=== PATIENT | male | born 1950 | race Caucasian/White ===

== ENCOUNTER 2024-01-07 06:29 | Emergency (ER) | payer MEDICARE, OTHER, SELFPAY ==
[2024-01-07 06:31] VITALS: BP 132/86
[2024-01-07 06:40] VITALS: BMI 27.7
--- NOTE | 2024-01-07 07:37 | ED.GENMED ---
History of Present Illness
General
Chief Complaint: DVT/Possible Blood Clot
Source: patient
Exam Limitations: none
Time Seen by Provider: 01/07/24 07:06
Nursing documentation reviewed up to this point in time: agreed with
History of Present Illness
History of Present Illness:
Patient is a 73-year-old male presents to the ER for evaluation of left calf pain. He reports he woke up at 1:15 AM by stabbing pain in his left calf. He reports he had a DVT years ago in [place] and this feels similar. He denies any shortness
of breath. Denies any recent injury. Denies any obvious swelling. Denies any redness fever chills.
Past History
Past History
ED Past Medical History: None, Other (Irritable bowel ) and Other (Diverticulitis)
ED Past Surgical History: None and Orthopedic
Social History
Tobacco: Non-smoker
Alcohol: Daily
Drug: None
Personal:
Living: with family
Employment: Employed
Review of Systems
Review of Systems
Allergies reviewed?: Yes
All Other Systems: ROS reviewed and negative except as documented in HPI and ROS
Constitutional: Reports no symptoms; Denies fever
Musculoskeletal: Reports other (left calf pain )
Skin: Reports no symptoms
Neurological: Reports no symptoms
Psychiatric: Reports no symptoms
Phy Exam
General Physical Exam
General Presentation: no apparent distress
General age: appears stated age
General Skin: warm and dry
General Habitus: normal
General Mental: alert
General Hydration: appears well hydrated
Neurological Exam
Neurological Exam: alert and oriented x3
Musculoskeletal Exam
Musculoskeletal Exam: full ROM and other (lle w/ strong pulses no erythema no swelling + tenderness to posterior calf )
Skin Exam
Skin Exam: normal color and warm/dry
Psychiatric Exam
Psychiatric Exam: normal mood/affect
Course
Orders/Labs/Results
Orders:
Orders
01/07/24 07:10
Venous Doppler Lwr Ext Left [US Periph Venous LOWER Ext LT] Urgent
Comment:
Reason For Exam: pain
01/07/24 08:03
Complete Blood Count/With Diff Urgent
Comprehensive Metabolic Panel Urgent
01/07/24 08:15
Acetaminophen [Tylenol] 650 mg PO NOW STA
Abnormal Lab Results
01/07/24
08:03
WBC 4.6 L 10^3/uL
(4.8-10.8)
Hgb 12.0 L g/dL
(13.0-18.0)
Hct 36.2 L %
(39.0-52.0)
MCV 62.4 L fL
(80.0-94.0)
MCH 20.7 L pg
(27.0-31.0)
RDW 17.6 H %
(11.5-14.5)
Plt Count 125 L 10^3/uL
(130-400)
Absolute Lymphs (auto) 1.0 L 10^3/uL
(1.2-3.4)
01/07/24 08:03
01/07/24 08:03
Vital Signs
Initial and Last Documented VS:
Initial Vital Signs
Temp Pulse Resp BP Pulse Ox
97.4 F 64 22 132/86 98
01/07/24 06:31 01/07/24 06:31 01/07/24 06:31 01/07/24 06:31 01/07/24 06:31
Last Documented Vital Signs
Temp Pulse Resp BP Pulse Ox
97.4 F 64 22 132/86 98
01/07/24 06:31 01/07/24 06:31 01/07/24 06:31 01/07/24 06:31 01/07/24 06:31
MDM/Problems Addressed
Differential Diagnosis Includes:
Not limited to DVT, muscle pain, electrolyte abnormality
MDM/Problems Addressed:
0742: Patient is a 73-year-old male who complains of pain to the left calf. He reports this is similar to when he had a DVT years ago. He has no shortness of breath no injury no fever chills no evidence of infection. Will obtain ultrasound check
labs.
0828: Negative DVT labs unremarkable. Discussed with patient close outpatient follow-up with family doctor and return if worsening of symptoms. Discussed repeat ultrasound in the next week if symptoms continue.
*Critical Care Note
Total Time (30-74mins, 75-104mins- exclusive of procedures): Not Applicable
ED Attending Note
-
Portions of this chart may have been created with voice recognition software.� Occasional wrong word or��sound alike� substitutions may have occurred due to the inherent limitations of voice recognition software.
Discharge Plan
Departure
Patient Disposition: Home (Routine Discharge)
Date of Disposition: 01/07/24
Time of Disposition: 08:35
Patient with high blood pressure during this ER visit?: Yes
Condition: Fair
Covid-19: Not Applicable
Discharge Problem:
Pain of left calf
Instructions: Muscle and bone pain - Discharge instructions, BLOOD PRESSURE
Prescriptions:
No Action
No Current Medications
0
Referrals:
Rosales Kemp MD [Family Provider] -
Activity Restrictions/Additional Instructions:
As discussed your ultrasound was negative here in the ER however follow-up with your family doctor the next several days for reevaluation of symptoms if symptoms persist it is recommended that you repeat ultrasound in the next 1 week. Return if any
worsening of symptoms worsening pain swelling redness fever chills.
Interventions
Interventions:
*Risk Screen - Suicide Last Done: 01/07/24 06:31
*General Assessment Last Done: 01/07/24 06:40
*Neglect/Abuse Screening Last Done: 01/07/24 06:31
*ED COVID-19 Vaccine History Last Done: 01/07/24 06:40
ED- Cardiac Assessment Last Done: 01/07/24 07:09
ED- Pulmonary Assessment Last Done: 01/07/24 07:09
ED-Peripheral Vascular Assessment Last Done: 01/07/24 07:09
ED-Skin Assessment Last Done: 01/07/24 06:40
Discharge Date and Time
Print Language: LITHUANIAN
[2024-01-07 08:15] LABS: % Basophils 1.1 % (0-2); % Eosinophils 2.8 % (0-6); % Immature Granulocytes 0.4 % (0-0.5); % Lymphocytes 20.9 % (20.5-51.1); % Monocytes 8.3 % (1.7-9.3); % Neutrophils 66.5 % (42.2-75.2); Absolute Basophils 0.1 10^3/uL (0-0.2); Absolute Eosinophils 0.1 10^3/uL (0-0.7); Absolute Monocytes 0.4 10^3/uL (0.1-0.6); Absolute Neutrophils 3.1 10^3/uL (1.4-6.5); Hematocrit 36.2 % (39.0-52.0); Mean Corp Hgb Conc. 33.1 g/dL (33.0-37.0); Mean Corpuscular Hgb 20.7 pg (27.0-31.0); Mean Corpuscular Volume 62.4 fL (80.0-94.0); Nucleated Red Blood Cells % 0 % (-); Platelet Count 125 10^3/uL (130-400); Red Cell Dist. Width 17.6 % (11.5-14.5); White Blood Cell Count 4.6 10^3/uL (4.8-10.8)
[2024-01-07 08:24] LABS: ALT (SGPT) 17 U/L (0-50); AST (SGOT) 22 U/L (17-59); Alkaline Phosphatase 60 U/L (38-126); Blood Urea Nitrogen 15 mg/dl (9-20); Calcium 9.3 mg/dl (8.4-10.2); Carbon Dioxide 26 mmol/L (22-30); Chloride 106 mmol/L (98-107); Estimated Creatinine Clearance 78 ml/min; Glucose 92 mg/dl (70-99); Sodium 139 mmol/L (135-145); Total Bilirubin 1.2 mg/dl (0.2-1.3); Total Protein 6.4 g/dl (6.3-8.2); eGFR > 60.00
[2024-01-07] MEDS: TYLENOL 650 MG PO (08:29)
== END 2024-01-07 08:49 | disposition home or self-care (01) ==
LOC: EMR 06:29
PROVIDERS: Nurse Practitioner; EMERGENCY PHYSICIAN Emergency Medicine; FAMILY PHYSICIAN Family Medicine
DX: M79.662 Pain in left lower leg (principal); R03.0 Elevated blood-pressure reading, without diagnosis of hypertension
CPT/HCPCS: 99284; 80053; 85025; 93971

== ENCOUNTER → 2024-08-29 07:34 | Outpatient (REF) | payer MEDICARE, OTHER, SELFPAY | LOC: MRI 07:34 | PROVIDERS: ATTENDING PHYSICIAN Otolaryngology; FAMILY PHYSICIAN Family Medicine | DX: H90.A22 Sensorineural hearing loss, unilateral, left ear, with restricted hearing on the contralateral side (principal) | CPT/HCPCS: 70553; A9575 ==